=== PATIENT | female | born 1980 | race Caucasian/White ===

== ENCOUNTER 2020-10-27 07:03 | Emergency (ER) | payer SELFPAY ==
[~2020-10-27] VITALS: Ht 175.3 cm; Wt 65.5 kg
--- NOTE | 2020-10-27 07:14 | NUR ---
PT REFUSED ORAL TEMP IN TRIAGE.
--- NOTE | 2020-10-27 07:16 | NUR ---
PATIENT WALKED BACK FROM TRIAGE WITH CHIEF C/O COUGH AND CONGESTION. TESTED POSITIVE COVID ABOUT A MONTH AGO, PATIENT STATES SHE WAS IN [facility]IV[facility] WHEN SHE TESTED POSITIVE AND PUT IN QUARANTINE FOR 2 WEEKS BUT NOT RETESTED BEFORE BEING RELEASED. REPORTS NOT FEELING WELL SINCE AND STATES "IT BOTHERS ME IF I'M STILL INFECTED AND IT'S BREWING INSIDE OF ME." ZANE, CONNECTED TO MONITOR, VSS, CALL LIGHT WITHIN REACH.
--- NOTE | 2020-10-27 07:21 | NUR ---
ERMD AT BEDSIDE FOR EVALUATION.
--- NOTE | 2020-10-27 08:01 | NUR ---
[facility], VSS, CALL LIGHT WITHIN REACH. PATIENT UP FOR RECHECK.
[2020-10-27 08:04] VITALS: BP 112/72
--- NOTE | 2020-10-27 08:45 | NUR ---
Patient given discharge instructions and they have confirmed that they understand the instructions. Patient ambulatory with steady gait. NAD, all questions answered appropriately, denies additional needs at this time. No personal belongings left in room after discharge.
== END 2020-10-27 08:46 | disposition home or self-care (01) ==
LOC: ED 08:40
DX: U07.1 COVID-19 (principal); J40 Bronchitis, not specified as acute or chronic
CPT/HCPCS: 71045; 99283

== ENCOUNTER 2020-10-30 20:02 | Emergency (ER) | payer SELFPAY ==
[~2020-10-30] VITALS: Ht 175.3 cm; Wt 63.2 kg
[2020-10-30 20:05] VITALS: BP 117/67
[2020-10-30 21:49] LABS: CLUE CELLS NONE SEEN (NONE SEEN); WET PREP WBCS NONE SEEN (FEW)
--- NOTE | 2020-10-30 21:50 | NUR ---
Pt given cup for UA sample. Pt returned to room. Pt states she urinated but forgot to collect it. ER PA notified.
[2020-10-30] MEDS ORDERED: CEFTRIAXONE 1,000 MG IM ONE (22:00)
[2020-10-30] MEDS ORDERED: CEFTRIAXONE 1,000 MG ONE (22:03)
[2020-10-30] MEDS ORDERED: LIDOCAINE-MPF 1%, 2ML ONE (22:04)
--- NOTE | 2020-10-30 23:04 | NUR ---
Cath UA collected and walked to lab. Pt tolerated well.
[2020-10-30 23:10] LABS: MICROSCOPIC NOT IND
== END 2020-10-30 23:54 | disposition home or self-care (01) ==
LOC: ED 20:59
DX: A64 Unspecified sexually transmitted disease (principal); N89.8 Other specified noninflammatory disorders of vagina; R30.9 Painful micturition, unspecified; R10.2 Pelvic and perineal pain
CPT/HCPCS: 81003; 81025; 87210; 87491; 87591; 87808; 96372; 99283; J0696